=== PATIENT | male | born 1995 | race Caucasian/White ===

== ENCOUNTER 2024-11-24 15:11 | Emergency (ER) | payer SELFPAY ==
[~2024-11-24] VITALS: Ht 157.5 cm; Wt 85.2 kg
[2024-11-24 15:33] VITALS: O2SAT 96
[2024-11-24] MEDS: KETOROLAC 15MG/ML VIAL IM ONE (16:57)
[2024-11-24] MEDS ORDERED: IBUP-2028 MT (18:11)
[2024-11-24 18:49] VITALS: BP 146/85; PULSE 102; RESP 18; TEMP 36.8; O2SAT 100
== END 2024-11-24 18:57 | disposition home or self-care (01) ==
LOC: ER 15:11
DX: M25.571 Pain in right ankle and joints of right foot (principal); M25.561 Pain in right knee
CPT/HCPCS: 73562; 73610; 96372; 99284; J1885; Z7610 ×2; A6449